=== PATIENT | male | born 1950 | race Caucasian/White ===

== ENCOUNTER 2018-01-08 18:29 | Inpatient (IN) | payer MEDICARE, OTHER ==
[~2018-01-08] VITALS: Ht 160 cm; Wt 65.3 kg
[~2018-01-08 18:29] MED LIST: ACIDOPHILUS; ALBU90OI61 INH; ALFU10; AMIT10; AMIT25; AMIT50; AMYLIPPRO PO; ANDROGEL75 GM TD; ASCO500; ASCO500 PO; ASPI81CH PO; ASPI81EC; ATOR10; ATOR40TA; ATOR80 PO; Ambien5 MG PO; BETASERON; CARV3.125 PO; CEPH125SU PO; CLOP75 PO; CREON DR 12,001 EACH PO; CYCL10 PO; Colace100 MG PO; DIAZ5; ENAL5; ENAL5 PO; ESCI20 PO; ESOM20 PO; FISH1000 PO; GABA300; GNP B-COMPLEX1 EACH PO; HYDMOR4 PO; HYDR1TAB94 PO; IMDUR PO; INS70/30I; INSDET100 SQ; INSN100I; INSR10I; INSR10I SC; INSU7030P; INTE30I; INTE30I IM; LANS30EC; LANS30PKT; MAGNESIUM400 MG PO; METF500 PO; METO10 PO; METO50ER; MULVITB&C PO; Miralax17 GM PO; NITR.4SL SL; OMEP20ER PO; ONDA4ODT MM; PRED10 PO; PREG50; PREG75; PREG75 PO; Percocet 5-3251 EACH PO; Prilosec Otc20 MG PO; RANO500T PO; SILD50TA PO; VERA240ER PO; VITB100; ZINC15; ZOLP10; ZOLP5 PO; [UNRECOGNIZED DRUG - OTHER]
[2018-01-08] MEDS ORDERED: TECFIDERA1 EACH PO (18:52)
[2018-01-08] MEDS ORDERED: METF500C PO (18:52)
[2018-01-08] MEDS ORDERED: METO25ER PO (18:53)
[2018-01-08] MEDS ORDERED: AMLO5 PO (18:54)
[2018-01-08] MEDS ORDERED: ISOMON20 PO (18:55)
[2018-01-08] MEDS ORDERED: ESCI10 PO (18:56)
[2018-01-08] MEDS ORDERED: Metformin HCl1000 MG PO (18:57)
[2018-01-08] MEDS ORDERED: Isosorbide Mono60 MG PO (18:59)
[2018-01-08] MEDS ORDERED: ALFU10 PO (19:03)
[2018-01-08] MEDS ORDERED: ESTER-C 1,0001 EACH PO (19:04)
[2018-01-08 19:05] LABS: BASOPHILS ABSOLUTE AUTO 0.03 K/mm3 (0.00-0.23); BASOPHILS PERCENT AUTO 0 % (0-2); EOSINOPHILS ABSOLUTE AUTO 0.67 K/mm3 (0.00-0.68); EOSINOPHILS PERCENT AUTO 8 % (0-6); Hematocrit 30.1 % (37.0-53.0); Hemoglobin 9.7 g/dL (13.5-17.5); IMMATURE GRAN ABSOLUTE AUTO 0.05 K/mm3 (0.00-0.10); IMMATURE GRAN PERCENT AUTO 1 % (0-1); LYMPHOCYTES ABSOLUTE AUTO 2.15 K/mm3 (0.84-5.20); LYMPHOCYTES PERCENT AUTO 26 % (21-46); MONOCYTES ABSOLUTE AUTO 1.24 K/mm3 (0.16-1.47); MONOCYTES PERCENT AUTO 15 % (4-13); Mean Corpuscular HGB 27.6 pg (26.0-34.0); Mean Corpuscular HGB Conc 32.2 g/dL (31.5-36.5); Mean Corpuscular Volume 86 fL (80-100); NEUTROPHILS ABSOLUTE AUTO 4.07 K/mm3 (1.96-9.15); NEUTROPHILS PERCENT AUTO 50 % (41-73); Platelet Count 269 K/mm3 (150-400); RDW Coefficient Variation 14.2 % (11.7-14.2); RDW Standard Deviation 43.7 fL (35.1-46.3); Red Blood Cell Count 3.51 M/mm3 (4.30-5.90); White Blood Cell Count 8.21 K/mm3 (4.00-11.30)
[2018-01-08 19:21] LABS: Alanine Aminotransfer (ALT/SGP 20 U/L (12-78); Albumin, Blood 3.4 g/dL (3.4-5.0); Albumin/Globulin Ratio 0.8 (0.8-1.8); Alk Phos 72 U/L (50-136); Anion Gap 9 mmol/L (6-16); Aspartate Aminotrans (AST/SGOT 23 U/L (12-37); Bilirubin, Total 0.7 mg/dL (0.1-1.0); Blood Urea Nitrogen 27 mg/dL (8-24); Bun/Creatinine Ratio 14.8 (12.0-20.0); CO2, Blood 23 mmol/L (21-32); Calcium, Blood 8.7 mg/dL (8.5-10.1); Chloride, Blood 105 mmol/L (98-108); Creatinine, Blood 1.83 mg/dL (0.60-1.20); Globulin, Blood 4.1 g/dL (2.2-4.0); Glomerular Filtration Rate 40 (60-); Glucose, Blood 100 mg/dL (70-99); Potassium, Blood 5.1 mmol/L (3.5-5.5); Sodium, Blood 137 mmol/L (136-145); Total Protein, Blood 7.5 g/dL (6.4-8.2); Troponin I <0.015 ng/mL (0.000-0.040)
[2018-01-08 22:42] LABS: Source, Urine Clean Catch
[2018-01-08 22:46] LABS: Bilirubin, Urine Neg (Neg); Blood, Urine Neg (Neg); Glucose Qualitative, Urine Neg (Neg); Ketones, Urine Neg (Neg); Leukocyte Esterase, Urine Neg (Neg); Nitrite, Urine Neg (Neg); Protein, Urine Neg (Neg); Specific Gravity, Urine 1.005 (1.003-1.022); Urobilinogen, Urine NORM (Normal)
[2018-01-08 22:49] LABS: Appearance, Urine Clear (Clear); Color, Urine Yellow (P-Yellow)
[2018-01-08] MEDS ORDERED: ESCI20 PO (23:05)
[2018-01-09 03:21] LABS: Hematocrit 30.2 % (37.0-53.0); Hemoglobin 9.8 g/dL (13.5-17.5); Mean Corpuscular HGB Conc 32.5 g/dL (31.5-36.5); Mean Corpuscular Volume 86 fL (80-100); Platelet Count 256 K/mm3 (150-400); RDW Coefficient Variation 14.2 % (11.7-14.2); RDW Standard Deviation 44.5 fL (35.1-46.3); White Blood Cell Count 7.85 K/mm3 (4.00-11.30)
[2018-01-09 03:43] LABS: Alanine Aminotransfer (ALT/SGP 21 U/L (12-78); Albumin, Blood 3.4 g/dL (3.4-5.0); Albumin/Globulin Ratio 0.8 (0.8-1.8); Alk Phos 74 U/L (50-136); Anion Gap 10 mmol/L (6-16); Aspartate Aminotrans (AST/SGOT 24 U/L (12-37); Bilirubin, Total 0.7 mg/dL (0.1-1.0); Blood Urea Nitrogen 27 mg/dL (8-24); Bun/Creatinine Ratio 14.8 (12.0-20.0); CO2, Blood 24 mmol/L (21-32); CPK Creatine Kinase 59 U/L (39-308); Calcium, Blood 8.8 mg/dL (8.5-10.1); Chloride, Blood 104 mmol/L (98-108); Creatinine, Blood 1.82 mg/dL (0.60-1.20); Globulin, Blood 4.3 g/dL (2.2-4.0); Glomerular Filtration Rate 40 (60-); Glucose, Blood 92 mg/dL (70-99); Potassium, Blood 4.7 mmol/L (3.5-5.5); Sodium, Blood 138 mmol/L (136-145); Total Protein, Blood 7.7 g/dL (6.4-8.2); Troponin I <0.015 ng/mL (0.000-0.040)
[2018-01-09 12:14] LABS: CPK Creatine Kinase 52 U/L (39-308); Troponin I <0.015 ng/mL (0.000-0.040)
[2018-01-09 19:38] LABS: CPK Creatine Kinase 51 U/L (39-308); Troponin I <0.015 ng/mL (0.000-0.040)
[2018-01-10 08:50] LABS: Bun/Creatinine Ratio 14.2 (12.0-20.0); Calcium, Blood 9.1 mg/dL (8.5-10.1); Creatinine, Blood 1.9 mg/dL (0.60-1.20); Potassium, Blood 4.2 mmol/L (3.5-5.5)
[2018-01-11 04:50] LABS: Bun/Creatinine Ratio 14.4 (12.0-20.0); Calcium, Blood 8.9 mg/dL (8.5-10.1); Creatinine, Blood 2.01 mg/dL (0.60-1.20); Potassium, Blood 4.4 mmol/L (3.5-5.5)
[2018-01-12 05:06] LABS: Bun/Creatinine Ratio 15.9 (12.0-20.0); Calcium, Blood 8.7 mg/dL (8.5-10.1); Creatinine, Blood 1.82 mg/dL (0.60-1.20); Potassium, Blood 4.3 mmol/L (3.5-5.5)
[2018-01-12] MEDS ORDERED: FURO20 PO (12:05)
== END 2018-01-12 13:52 | disposition home or self-care (01) | DRG 291 ==
LOC: ER 18:29 → MEDS 20:45 → ENPENDDIS 01-12 10:00 → MEDS 01-12 13:52
PROVIDERS: Emergency Medicine; Hospitalist; Internal Medicine
DX: I13.0 Hypertensive heart and chronic kidney disease with heart failure and stage 1 through stage 4 chronic kidney disease, or unspecified chronic kidney disease (principal); I50.31 Acute diastolic (congestive) heart failure; J96.01 Acute respiratory failure with hypoxia; N17.9 Acute kidney failure, unspecified; N18.3 Chronic kidney disease, stage 3 (moderate); E11.22 Type 2 diabetes mellitus with diabetic chronic kidney disease; I25.110 Atherosclerotic heart disease of native coronary artery with unstable angina pectoris; G35 Multiple sclerosis; I73.9 Peripheral vascular disease, unspecified; Z87.891 Personal history of nicotine dependence
CPT/HCPCS: 36415; 71046; 78451; 80048; 80053; 81003; 82550; 82947; 83880; 84484; 85025; 85027; 93005; 93010; 93017; 93308; 93321; 94640; 94760; 96372; 96374; 99285-25; A9500; J0706; J1650; J1940; J2785; J7030

== ENCOUNTER 2018-01-16 19:57 | Observation (INO) | payer MEDICARE, OTHER ==
[~2018-01-16] VITALS: Ht 162.6 cm; Wt 67.9 kg
[~2018-01-16 19:57] MED LIST changes: +ALFU10 PO; +AMLO5 PO; +ESCI10 PO; +ESTER-C 1,0001 EACH PO; +FURO20 PO; +ISOMON20 PO; +Isosorbide Mono60 MG PO; +METF500C PO; +METO25ER PO; +Metformin HCl1000 MG PO; +TECFIDERA1 EACH PO
[2018-01-16 20:40] LABS: BASOPHILS ABSOLUTE AUTO 0.06 K/mm3 (0.00-0.23); BASOPHILS PERCENT AUTO 1 % (0-2); EOSINOPHILS ABSOLUTE AUTO 0.64 K/mm3 (0.00-0.68); EOSINOPHILS PERCENT AUTO 7 % (0-6); Hemoglobin 9.9 g/dL (13.5-17.5); IMMATURE GRAN ABSOLUTE AUTO 0.04 K/mm3 (0.00-0.10); IMMATURE GRAN PERCENT AUTO 1 % (0-1); LYMPHOCYTES ABSOLUTE AUTO 2.02 K/mm3 (0.84-5.20); LYMPHOCYTES PERCENT AUTO 23 % (21-46); MONOCYTES ABSOLUTE AUTO 1.12 K/mm3 (0.16-1.47); MONOCYTES PERCENT AUTO 13 % (4-13); Mean Corpuscular HGB 27.4 pg (26.0-34.0); Mean Platelet Volume 10.4 fL (9.1-12.4); NEUTROPHILS ABSOLUTE AUTO 4.86 K/mm3 (1.96-9.15); NEUTROPHILS PERCENT AUTO 56 % (41-73); Platelet Count 289 K/mm3 (150-400); RDW Coefficient Variation 13.6 % (11.7-14.2); RDW Standard Deviation 41.1 fL (35.1-46.3); Red Blood Cell Count 3.61 M/mm3 (4.30-5.90); White Blood Cell Count 8.74 K/mm3 (4.00-11.30)
[2018-01-16 20:41] LABS: Mean Corpuscular Volume 83 fL (80-100)
[2018-01-16 20:55] LABS: Alanine Aminotransfer (ALT/SGP 24 U/L (12-78); Albumin, Blood 3.7 g/dL (3.4-5.0); Albumin/Globulin Ratio 0.8 (0.8-1.8); Alk Phos 76 U/L (50-136); Anion Gap 13 mmol/L (6-16); Aspartate Aminotrans (AST/SGOT 21 U/L (12-37); Bilirubin, Total 0.6 mg/dL (0.1-1.0); Blood Urea Nitrogen 31 mg/dL (8-24); Bun/Creatinine Ratio 16.5 (12.0-20.0); CO2, Blood 19 mmol/L (21-32); Calcium, Blood 8.4 mg/dL (8.5-10.1); Chloride, Blood 95 mmol/L (98-108); Creatinine, Blood 1.88 mg/dL (0.60-1.20); Globulin, Blood 4.4 g/dL (2.2-4.0); Glomerular Filtration Rate 38 (60-); Glucose, Blood 98 mg/dL (70-99); Potassium, Blood 5.1 mmol/L (3.5-5.5); Sodium, Blood 127 mmol/L (136-145); Total Protein, Blood 8.1 g/dL (6.4-8.2); Troponin I <0.015 ng/mL (0.000-0.040)
[2018-01-17 05:14] LABS: Bun/Creatinine Ratio 16.5 (12.0-20.0); Calcium, Blood 8.6 mg/dL (8.5-10.1); Creatinine, Blood 1.82 mg/dL (0.60-1.20); Potassium, Blood 5.2 mmol/L (3.5-5.5)
[2018-01-18 05:14] LABS: Bun/Creatinine Ratio 14.4 (12.0-20.0); Calcium, Blood 8.8 mg/dL (8.5-10.1); Creatinine, Blood 1.67 mg/dL (0.60-1.20); Potassium, Blood 5.1 mmol/L (3.5-5.5)
== END 2018-01-18 11:10 | disposition home or self-care (01) ==
LOC: ER 19:57 → MEDS 19:58 → EDPENDDIS 01-18 07:34 → ENPENDDIS 01-18 07:34 → MEDS 01-18 11:10
PROVIDERS: Emergency Medicine; Internal Medicine; Nurse Practitioner Acute Care
DX: E86.0 Dehydration (principal); E87.1 Hypo-osmolality and hyponatremia; E87.8 Other disorders of electrolyte and fluid balance, not elsewhere classified; R53.1 Weakness; G35 Multiple sclerosis; I25.10 Atherosclerotic heart disease of native coronary artery without angina pectoris; E11.22 Type 2 diabetes mellitus with diabetic chronic kidney disease; I13.0 Hypertensive heart and chronic kidney disease with heart failure and stage 1 through stage 4 chronic kidney disease, or unspecified chronic kidney disease; I50.32 Chronic diastolic (congestive) heart failure; N18.3 Chronic kidney disease, stage 3 (moderate); K21.9 Gastro-esophageal reflux disease without esophagitis; Z79.899 Other long term (current) drug therapy; F17.290 Nicotine dependence, other tobacco product, uncomplicated; Z79.82 Long term (current) use of aspirin; Z88.0 Allergy status to penicillin; Z79.02 Long term (current) use of antithrombotics/antiplatelets; Z88.2 Allergy status to sulfonamides; Z88.5 Allergy status to narcotic agent; Z88.8 Allergy status to other drugs, medicaments and biological substances; W19.XXXA Unspecified fall, initial encounter
CPT/HCPCS: 36415; 71046; 80048; 80053; 83880; 84484; 85025; 93005; 93010; 96360; 96361; 97116; 97162; 97530; 99285-25; G0378; G8978; G8979; J7030

== ENCOUNTER 2018-04-18 09:57 | Emergency (ER) | payer MEDICARE ==
[~2018-04-18] VITALS: Ht 165.1 cm; Wt 63.5 kg
[~2018-04-18 09:57] MED LIST changes: +FENO600 PO; +FERSU90EL PO; +LEVE500 PO
[2018-04-18 10:41] LABS: BASOPHILS ABSOLUTE AUTO 0.04 K/mm3 (0.00-0.23); BASOPHILS PERCENT AUTO 1 % (0-2); EOSINOPHILS ABSOLUTE AUTO 0.46 K/mm3 (0.00-0.68); EOSINOPHILS PERCENT AUTO 7 % (0-6); Hematocrit 34.2 % (37.0-53.0); Hemoglobin 10.9 g/dL (13.5-17.5); IMMATURE GRAN ABSOLUTE AUTO 0.02 K/mm3 (0.00-0.10); IMMATURE GRAN PERCENT AUTO 0 % (0-1); LYMPHOCYTES ABSOLUTE AUTO 1.97 K/mm3 (0.84-5.20); LYMPHOCYTES PERCENT AUTO 29 % (21-46); MONOCYTES ABSOLUTE AUTO 0.88 K/mm3 (0.16-1.47); MONOCYTES PERCENT AUTO 13 % (4-13); Mean Corpuscular HGB 28.7 pg (26.0-34.0); Mean Corpuscular HGB Conc 31.9 g/dL (31.5-36.5); Mean Corpuscular Volume 90 fL (80-100); Mean Platelet Volume 10.1 fL (9.1-12.4); NEUTROPHILS ABSOLUTE AUTO 3.39 K/mm3 (1.96-9.15); NEUTROPHILS PERCENT AUTO 50 % (41-73); Platelet Count 188 K/mm3 (150-400); RDW Standard Deviation 52.8 fL (35.1-46.3); White Blood Cell Count 6.76 K/mm3 (4.00-11.30)
[2018-04-18 10:57] LABS: Albumin, Blood 3.3 g/dL (3.4-5.0); Albumin/Globulin Ratio 0.8 (0.8-1.8); Bilirubin, Total 0.5 mg/dL (0.1-1.0); Bun/Creatinine Ratio 12.7 (12.0-20.0); Calcium, Blood 8.9 mg/dL (8.5-10.1); Creatinine, Blood 1.65 mg/dL (0.60-1.20); Globulin, Blood 4.3 g/dL (2.2-4.0); Magnesium, Blood 1.7 mg/dL (1.6-2.4); Potassium, Blood 4.9 mmol/L (3.5-5.5); Total Protein, Blood 7.6 g/dL (6.4-8.2)
[2018-04-18 10:59] LABS: Prolactin 41.3 ng/mL (2.5-17.4)
[2018-04-18] MEDS ORDERED: LEVE500 PO (13:48)
== END 2018-04-18 14:37 | disposition home or self-care (01) ==
LOC: ER 09:57
PROVIDERS: Emergency Medicine
DX: G40.909 Epilepsy, unspecified, not intractable, without status epilepticus (principal); G35 Multiple sclerosis; I11.0 Hypertensive heart disease with heart failure; I50.9 Heart failure, unspecified; E11.9 Type 2 diabetes mellitus without complications; K21.9 Gastro-esophageal reflux disease without esophagitis; Z87.891 Personal history of nicotine dependence
CPT/HCPCS: 36415; 80053; 83735; 84146; 85025; 96365; 99284-25; J1953

== ENCOUNTER → 2018-08-17 | Outpatient (CLI) | payer MEDICARE, OTHER ==
[2018-08-17 15:03] LABS: Creatinine Urine 43.3 mg/dL (27.00-270.00); Microalbumin, Urine Quant. 5.92 mg/L (0.000-20.000)
== END | disposition home or self-care (01) ==
LOC: LAB SHORT 13:28 → LAB 13:28
PROVIDERS: Internal Medicine Nephrology
DX: N18.3 Chronic kidney disease, stage 3 (moderate) (principal); D75.1 Secondary polycythemia; N25.81 Secondary hyperparathyroidism of renal origin; E55.9 Vitamin D deficiency, unspecified; E78.00 Pure hypercholesterolemia, unspecified; R76.9 Abnormal immunological finding in serum, unspecified; R94.5 Abnormal results of liver function studies; R94.6 Abnormal results of thyroid function studies; G60.9 Hereditary and idiopathic neuropathy, unspecified; D51.8 Other vitamin B12 deficiency anemias; D52.8 Other folate deficiency anemias; D50.9 Iron deficiency anemia, unspecified
CPT/HCPCS: 81050; 82043; 82570; 84156

== ENCOUNTER 2021-06-05 12:12 | Emergency (ER) | payer MEDICARE ==
[~2021-06-05] VITALS: Ht 162.6 cm; Wt 74.8 kg
[2021-06-05 13:31] LABS: BASOPHILS ABSOLUTE AUTO 0.04 K/mm3 (0.00-0.23); BASOPHILS PERCENT AUTO 1 % (0-2); EOSINOPHILS ABSOLUTE AUTO 0.14 K/mm3 (0.00-0.68); EOSINOPHILS PERCENT AUTO 2 % (0-6); Hematocrit 40.2 % (37.0-53.0); Hemoglobin 13.4 g/dL (13.5-17.5); IMMATURE GRAN ABSOLUTE AUTO 0.05 K/mm3 (0.00-0.10); IMMATURE GRAN PERCENT AUTO 1 % (0-1); LYMPHOCYTES ABSOLUTE AUTO 1.75 K/mm3 (0.84-5.20); LYMPHOCYTES PERCENT AUTO 22 % (21-46); MONOCYTES ABSOLUTE AUTO 0.87 K/mm3 (0.16-1.47); MONOCYTES PERCENT AUTO 11 % (4-13); Mean Corpuscular HGB 31.2 pg (26.0-34.0); Mean Corpuscular HGB Conc 33.3 g/dL (31.5-36.5); Mean Corpuscular Volume 94 fL (80-100); Mean Platelet Volume 10.2 fL (9.1-12.4); NEUTROPHILS ABSOLUTE AUTO 5.14 K/mm3 (1.96-9.15); NEUTROPHILS PERCENT AUTO 64 % (41-73); Platelet Count 191 K/mm3 (150-400); RDW Coefficient Variation 13.2 % (11.7-14.2); RDW Standard Deviation 44.6 fL (35.1-46.3); White Blood Cell Count 7.99 K/mm3 (4.00-11.30)
[2021-06-05 13:52] LABS: Albumin, Blood 3.9 g/dL (3.4-5.0); Albumin/Globulin Ratio 0.9 (0.8-1.8); Bilirubin, Total 0.8 mg/dL (0.1-1.0); Bun/Creatinine Ratio 21.9 (12.0-20.0); Creatinine, Blood 1.6 mg/dL (0.60-1.20); Globulin, Blood 4.4 g/dL (2.2-4.0); Total Protein, Blood 8.3 g/dL (6.4-8.2)
== END 2021-06-05 17:49 | disposition home or self-care (01) ==
LOC: ER 12:12
PROVIDERS: Physician Assistant
DX: R07.9 Chest pain, unspecified (principal); I11.0 Hypertensive heart disease with heart failure; I50.9 Heart failure, unspecified; E11.51 Type 2 diabetes mellitus with diabetic peripheral angiopathy without gangrene; K21.9 Gastro-esophageal reflux disease without esophagitis; F17.200 Nicotine dependence, unspecified, uncomplicated; Z79.82 Long term (current) use of aspirin; Z79.899 Other long term (current) drug therapy; Z88.5 Allergy status to narcotic agent; Z88.0 Allergy status to penicillin; Z88.2 Allergy status to sulfonamides; Z88.1 Allergy status to other antibiotic agents; Z91.040 Latex allergy status; Z88.8 Allergy status to other drugs, medicaments and biological substances
CPT/HCPCS: 36415; 71046; 80053; 83690; 83880; 84484; 85025; 93005; 93010; 99284-25; A9270

== ENCOUNTER 2021-09-06 07:43 | Observation (INO) | payer MEDICARE ==
[~2021-09-06] VITALS: Ht 162.6 cm; Wt 66.6 kg
[~2021-09-06 07:43] MED LIST changes: +CLON.5 PO; +DIPHENHYDRAMINE HCL PO; +PANT40 PO
--- NOTE | 2021-09-06 10:53 | NUR ---
PT RETURNED TO RECOVERY ROOM IN BED. RIGHT RADIAL TR BAND SITE SOFT NON-TENDER WITH NO HEMATOMA, NO PULSATILE BLEEDING AND RIGHT WRIST BOARD IN PLACE. PT DENIES CHEST PAIN. CALL LIGHT IN REACH.
--- NOTE | 2021-09-06 18:04 | NUR ---
ADMISSION/SHIFT SUMMARY: PT ADMITTED TO PCU F/[facility] C[facility] S/P ANGIOGRAM W/R RADIAL ACCESS SITE, ARRIVING APPROX 1200. PT IS A&Ox4, ANSWERS QUESTIONS APPROPRIATELY, COOPERATIVE WITH CARE. O2 SATS MAINTAINED >92% ON RA. PT DENIES CHEST PAIN/PRESSURE, SR ON MONITOR. INITIAL TR BAND DEFLATION STARTED 2 HOURS POST PLACEMENT W/BLEEDING AT THE SITE NOTED. AIR REPLACED AND DEFLATION RESUMED APPROX 30-45 MINS LATER. TR BAND HAS BEEN DEFLATED AND REMOVED W/TRANSPARENT DRESSING AND ARM BOARD IN PLACE. R RADIAL SITE IS SOFT, NONTENDER, MILD BRUISING BELOW WHERE BAND WAS. AT THIS TIME, PT IS RESTING QUIETLY IN BED W/CALL LIGHT IN REACH. WILL CONTINUE TO MONITOR AND TREAT ACCORDINGLY UNTIL CHANGE OF SHIFT.
[2021-09-07 03:36] LABS: Hematocrit 36.2 % (37.0-53.0); Mean Corpuscular HGB 30.2 pg (26.0-34.0); Mean Corpuscular HGB Conc 33.1 g/dL (31.5-36.5); Mean Corpuscular Volume 91 fL (80-100); Mean Platelet Volume 10.2 fL (9.1-12.4); Platelet Count 185 K/mm3 (150-400); RDW Coefficient Variation 13.1 % (11.7-14.2); RDW Standard Deviation 43.4 fL (35.1-46.3); Red Blood Cell Count 3.97 M/mm3 (4.30-5.90); White Blood Cell Count 6.35 K/mm3 (4.00-11.30)
[2021-09-07 03:54] LABS: Bun/Creatinine Ratio 13.3 (12.0-20.0); Calcium, Blood 8.9 mg/dL (8.5-10.1); Creatinine, Blood 1.66 mg/dL (0.60-1.20); Potassium, Blood 4.5 mmol/L (3.5-5.5)
--- NOTE | 2021-09-07 06:06 | NUR ---
NO ACUTE EVENTS OVERNIGHT. PT DENIES ANY CHEST PAIN OR PRESSURE THROUGHOUT THE SHIFT. RIGHT RADIAL ACCESS SITE WNL WITH THE EXCEPTION OF SLIGHT ECCHYMOSIS. SENSATION AND PULSE INTACT. PT REQUESTS DISCHARGE BY 11:00 AM, IF POSSIBLE, TO MAKE IT TO ANOTHER APPOINTMENT ON TIME. WILL PASS THIS ON TO THE DAY SHIFT STAFF.
--- NOTE | 2021-09-07 13:17 | NUR ---
DISCHARGE: NO ACUTE EVENTS, PT CLEARED FOR DISCHARGE. IV ACCESS DC'd WNL. PT PROVIDED WITH DC PAPERWORK AND INSTRUCTIONS, PT V/U. PT ESCORTED FROM UNIT VIA W/C W/OUT INCIDENT.
== END 2021-09-07 13:12 | disposition home or self-care (01) ==
LOC: MHTC 07:43 → PCU 10:51
PROVIDERS: Internal Medicine Interventional Cardiology; ADMIT Internal Medicine Cardiovascular Disease
DX: I25.118 Atherosclerotic heart disease of native coronary artery with other forms of angina pectoris (principal); E78.5 Hyperlipidemia, unspecified; I10 Essential (primary) hypertension; Z95.5 Presence of coronary angioplasty implant and graft; Z95.828 Presence of other vascular implants and grafts; I45.10 Unspecified right bundle-branch block; E11.51 Type 2 diabetes mellitus with diabetic peripheral angiopathy without gangrene; G35 Multiple sclerosis; Z88.5 Allergy status to narcotic agent; Z88.1 Allergy status to other antibiotic agents; Z88.0 Allergy status to penicillin; Z88.2 Allergy status to sulfonamides; Z88.6 Allergy status to analgesic agent
CPT/HCPCS: 36415; 76937; 80048; 85027; 85347; 92920; 92978; 93454; 99152; 99153; A9270; C1725; C1753; C1769; C1887; C1894; J1644; J2250; J7030; J7040; Q9967

== ENCOUNTER 2021-11-22 08:50 | Day surgery (SDC) | payer MEDICARE ==
[~2021-11-22] VITALS: Ht 162.6 cm; Wt 65.5 kg
--- NOTE | 2021-11-22 11:02 | NUR ---
11/22/21 1102 Bonny Berry USING [facility].DLB ACCESS SINCE [facility].NSC IS LOCKED OUT OF COMPUTER.
== END 2021-11-22 10:55 | disposition home or self-care (01) ==
LOC: ORSCSDS 08:50
PROVIDERS: Internal Medicine Gastroenterology
PROC: 0DB58ZX Excision of Esophagus, Via Natural or Artificial Opening Endoscopic, Diagnostic (ICD-10-PCS; principal; 2021-11-22 10:00)
PROC: 0DB68ZX Excision of Stomach, Via Natural or Artificial Opening Endoscopic, Diagnostic (ICD-10-PCS; principal; 2021-11-22 10:00)
DX: K21.00 Gastro-esophageal reflux disease with esophagitis, without bleeding (principal); K29.60 Other gastritis without bleeding; Z79.82 Long term (current) use of aspirin; Z87.891 Personal history of nicotine dependence; Z79.899 Other long term (current) drug therapy
CPT/HCPCS: 82947; 88305; 88342; J2704; J7120

== ENCOUNTER 2021-12-09 08:36 | Day surgery (SDC) | payer MEDICARE ==
[~2021-12-09] VITALS: Ht 162.6 cm; Wt 66.1 kg
--- NOTE | 2021-12-09 09:11 | NUR ---
12/09/21 0911 Monik Gupta AT 0850 PLEDGET AT 0850
== END 2021-12-09 10:12 | disposition home or self-care (01) ==
LOC: ORSCSDS 08:36
PROVIDERS: Ophthalmology
PROC: 08RJ3JZ Replacement of Right Lens with Synthetic Substitute, Percutaneous Approach (ICD-10-PCS; principal; 2021-12-09 10:00)
DX: H25.11 Age-related nuclear cataract, right eye (principal); E11.36 Type 2 diabetes mellitus with diabetic cataract; H21.81 Floppy iris syndrome; I10 Essential (primary) hypertension; G35 Multiple sclerosis; Z79.899 Other long term (current) drug therapy; Z79.02 Long term (current) use of antithrombotics/antiplatelets; Z79.82 Long term (current) use of aspirin
CPT/HCPCS: 82947; J2001; J3301; J7040; V2632

== ENCOUNTER 2021-12-16 11:04 | Day surgery (SDC) | payer MEDICARE ==
[~2021-12-16] VITALS: Ht 165.1 cm; Wt 65.8 kg
[2021-12-16] MEDS ORDERED: ALBU90OI (11:19)
== END 2021-12-16 12:48 | disposition home or self-care (01) ==
LOC: ORSCSDS 11:04
PROVIDERS: Ophthalmology
PROC: 08RK3JZ Replacement of Left Lens with Synthetic Substitute, Percutaneous Approach (ICD-10-PCS; principal; 2021-12-16 12:30)
DX: H25.12 Age-related nuclear cataract, left eye (principal); H21.81 Floppy iris syndrome; Z96.1 Presence of intraocular lens; E11.9 Type 2 diabetes mellitus without complications; I10 Essential (primary) hypertension; J44.9 Chronic obstructive pulmonary disease, unspecified; K21.9 Gastro-esophageal reflux disease without esophagitis; R56.9 Unspecified convulsions; I25.10 Atherosclerotic heart disease of native coronary artery without angina pectoris; Z79.82 Long term (current) use of aspirin; Z79.899 Other long term (current) drug therapy
CPT/HCPCS: 82947; J2001; J2250; J3301; J7040; V2632

== ENCOUNTER → 2022-08-08 | Outpatient (CLI) | payer MEDICARE ==
[~2022-08-08] MED LIST changes: +ALBU90OI
[2022-08-08 21:03] LABS: Adenovirus F 40/41 Not Detected (NOT DETECT); Astrovirus Not Detected (NOT DETECT); Campylobacter Sp Not Detected (NOT DETECT); Cryptosporidium Not Detected (NOT DETECT); Cyclospora Cayetanensis Not Detected (NOT DETECT); E. Coli O157 Not Detected (NOT DETECT); Entamoeba Histolytica Not Detected (NOT DETECT); Enteroaggregative E. coli-EAEC Not Detected (NOT DETECT); Enteropathogenic E. coli-EPEC Not Detected (NOT DETECT); Enterotoxigenic E. coli-ETEC Not Detected (NOT DETECT); Giardia Lamblia Not Detected (NOT DETECT); Norovirus GI/GII Not Detected (NOT DETECT); Plesiomonas Shigelloides Not Detected (NOT DETECT); Rotavirus A Not Detected (NOT DETECT); Salmonella Sp Not Detected (NOT DETECT); Sapovirus Not Detected (NOT DETECT); Shiga Toxin-prod E. coli-STEC Not Detected (NOT DETECT); Shigella/Enteroin E. coli-EIEC Not Detected (NOT DETECT); Vibrio Cholerae Not Detected (NOT DETECT); Vibrio Sp Not Detected (NOT DETECT); Yersinia Enterocolitica Not Detected (NOT DETECT)
== END | disposition home or self-care (01) ==
LOC: LAB SHORT 14:47
PROVIDERS: Family Medicine
DX: R19.7 Diarrhea, unspecified (principal)
CPT/HCPCS: 87507

== ENCOUNTER → 2022-08-19 | Outpatient (CLI) | payer OTHER ==
[2022-08-19 19:38] LABS: BASOPHILS ABSOLUTE AUTO 0.04 K/mm3 (0.00-0.23); BASOPHILS PERCENT AUTO 1 % (0-2); EOSINOPHILS ABSOLUTE AUTO 0.29 K/mm3 (0.00-0.68); EOSINOPHILS PERCENT AUTO 4 % (0-6); Hematocrit 32.2 % (37.0-53.0); Hemoglobin 10.7 g/dL (13.5-17.5); IMMATURE GRAN ABSOLUTE AUTO 0.02 K/mm3 (0.00-0.10); IMMATURE GRAN PERCENT AUTO 0 % (0-1); LYMPHOCYTES ABSOLUTE AUTO 1.53 K/mm3 (0.84-5.20); LYMPHOCYTES PERCENT AUTO 23 % (21-46); MONOCYTES ABSOLUTE AUTO 0.92 K/mm3 (0.16-1.47); MONOCYTES PERCENT AUTO 14 % (4-13); Mean Corpuscular HGB 30.1 pg (26.0-34.0); Mean Corpuscular HGB Conc 33.2 g/dL (31.5-36.5); Mean Corpuscular Volume 91 fL (80-100); Mean Platelet Volume 10.7 fL (9.1-12.4); NEUTROPHILS ABSOLUTE AUTO 3.98 K/mm3 (1.96-9.15); NEUTROPHILS PERCENT AUTO 59 % (41-73); Platelet Count 194 K/mm3 (150-400); RDW Coefficient Variation 13.9 % (11.7-14.2); RDW Standard Deviation 46.2 fL (35.1-46.3); Red Blood Cell Count 3.55 M/mm3 (4.30-5.90); White Blood Cell Count 6.78 K/mm3 (4.00-11.30)
[2022-08-19 20:03] LABS: Albumin, Blood 3.4 g/dL (3.4-5.0); Albumin/Globulin Ratio 0.8 (0.8-1.8); Bilirubin, Total 0.7 mg/dL (0.1-1.0); Bun/Creatinine Ratio 13.2 (12.0-20.0); Calcium, Blood 8.5 mg/dL (8.5-10.1); Creatinine, Blood 1.36 mg/dL (0.60-1.20); Globulin, Blood 4.5 g/dL (2.2-4.0); Potassium, Blood 3.8 mmol/L (3.5-5.5); Total Protein, Blood 7.9 g/dL (6.4-8.2)
== END | disposition home or self-care (01) ==
LOC: LAB SHORT 17:18
PROVIDERS: Family Medicine
DX: R19.7 Diarrhea, unspecified (principal)
CPT/HCPCS: 80053; 85025

== ENCOUNTER 2023-01-04 16:13 | Observation (INO) | payer OTHER ==
[~2023-01-04] VITALS: Ht 162.6 cm; Wt 66.9 kg
[2023-01-04 16:56] LABS: BASOPHILS ABSOLUTE AUTO 0.03 K/mm3 (0.00-0.23); BASOPHILS PERCENT AUTO 1 % (0-2); EOSINOPHILS ABSOLUTE AUTO 0.18 K/mm3 (0.00-0.68); EOSINOPHILS PERCENT AUTO 3 % (0-6); Hematocrit 31.6 % (37.0-53.0); Hemoglobin 10.4 g/dL (13.5-17.5); IMMATURE GRAN ABSOLUTE AUTO 0.03 K/mm3 (0.00-0.10); IMMATURE GRAN PERCENT AUTO 1 % (0-1); LYMPHOCYTES ABSOLUTE AUTO 1.33 K/mm3 (0.84-5.20); LYMPHOCYTES PERCENT AUTO 23 % (21-46); MONOCYTES ABSOLUTE AUTO 0.78 K/mm3 (0.16-1.47); MONOCYTES PERCENT AUTO 13 % (4-13); Mean Corpuscular HGB 30.1 pg (26.0-34.0); Mean Corpuscular HGB Conc 32.9 g/dL (31.5-36.5); Mean Corpuscular Volume 91 fL (80-100); Mean Platelet Volume 10.6 fL (9.1-12.4); NEUTROPHILS ABSOLUTE AUTO 3.56 K/mm3 (1.96-9.15); NEUTROPHILS PERCENT AUTO 60 % (41-73); Platelet Count 157 K/mm3 (150-400); RDW Coefficient Variation 14.3 % (11.7-14.2); RDW Standard Deviation 47.9 fL (35.1-46.3); Red Blood Cell Count 3.46 M/mm3 (4.30-5.90); White Blood Cell Count 5.91 K/mm3 (4.00-11.30)
[2023-01-04 17:22] LABS: Albumin, Blood 3.9 g/dL (3.4-5.0); Albumin/Globulin Ratio 0.8 (0.8-1.8); Bilirubin, Total 0.5 mg/dL (0.1-1.0); Bun/Creatinine Ratio 15.3 (12.0-20.0); Creatinine, Blood 1.57 mg/dL (0.60-1.20); Globulin, Blood 4.9 g/dL (2.2-4.0); Potassium, Blood 4.7 mmol/L (3.5-5.5); Total Protein, Blood 8.8 g/dL (6.4-8.2)
--- NOTE | 2023-01-04 22:20 | NUR ---
PT CHART REVEIWED FOR ADMISSION
[2023-01-04 23:11] VITALS: BP 147/71
--- NOTE | 2023-01-05 00:06 | NUR ---
PT ARRIVED TO ROOM AT 2207 AOX4 AND COOPERATIVE OF CARE. PT WAS ABLE TO STAND AND WALK OVER TO BED. PT STATES HE IS HAVING VERY MILD CHEST PAIN WHICH IS OFF AND ON, MUCH IMPROVED COMPARED TO WHEN HE ARRIVED PER PT.PT OREINTED TO ROOM AND CALL LIGHT WITHIN REACH. NO DISTRESS NOTED AT THIS TIME WILL CONTINUE TO MONITOR.
[2023-01-05 03:38] VITALS: BP 121/51
--- NOTE | 2023-01-05 05:05 | NUR ---
PT HAS HAD NO EVENTS THIS SHIFT. PT RESTING COMFORTABLY IN BED. NO DISTRESS NOTED. PT STATES NO INCREASE IN CHEST PAIN OVER NIGHT. CALL LIGHT IS WITHIN REACH WILL CONTINUE TO MONITOR.
[2023-01-05 07:31] VITALS: BP 133/70
[2023-01-05 17:01] VITALS: BP 118/68
--- NOTE | 2023-01-05 17:06 | NUR ---
SHIFT SUMMARY PT AOX4, INDEPENDENT IN THE ROOM. PT PLEASANT AND COOPERATIVE. AT THE BS THIS SHIFT. FIRST PORTION OF THE STRESS TEST COMPLETED. SECOND PORTION SCHEDULED FOR TOMORROW. PT HAS HAD NO C/O CP OR PRESSURE THIS SHIFT, NO SOB. PT WAS NPO FOR THE START OF THE SHIFT, TO GO NPO AGAIN TONIGHT AT MIDNIGHT. PT CALLS WELL AND MAKES HIS NEEDS KNOWN. CALL LIGHT WTIHIN REACH, BED IN THE LOWEST POSITION. WILL REPORT TO ONCOMING NURSE.
[2023-01-05 19:21] VITALS: BP 130/72
[2023-01-06 04:45] VITALS: BP 118/62
[2023-01-06 05:41] LABS: BASOPHILS ABSOLUTE AUTO 0.03 K/mm3 (0.00-0.23); BASOPHILS PERCENT AUTO 0 % (0-2); EOSINOPHILS PERCENT AUTO 3 % (0-6); Hematocrit 33.5 % (37.0-53.0); Hemoglobin 11.3 g/dL (13.5-17.5); IMMATURE GRAN ABSOLUTE AUTO 0.02 K/mm3 (0.00-0.10); IMMATURE GRAN PERCENT AUTO 0 % (0-1); LYMPHOCYTES ABSOLUTE AUTO 1.68 K/mm3 (0.84-5.20); LYMPHOCYTES PERCENT AUTO 25 % (21-46); MONOCYTES ABSOLUTE AUTO 0.93 K/mm3 (0.16-1.47); MONOCYTES PERCENT AUTO 14 % (4-13); Mean Corpuscular HGB 30.1 pg (26.0-34.0); Mean Corpuscular HGB Conc 33.7 g/dL (31.5-36.5); Mean Corpuscular Volume 89 fL (80-100); Mean Platelet Volume 10.5 fL (9.1-12.4); NEUTROPHILS ABSOLUTE AUTO 3.93 K/mm3 (1.96-9.15); NEUTROPHILS PERCENT AUTO 58 % (41-73); Platelet Count 176 K/mm3 (150-400); RDW Coefficient Variation 14.3 % (11.7-14.2); RDW Standard Deviation 46.5 fL (35.1-46.3); Red Blood Cell Count 3.75 M/mm3 (4.30-5.90); White Blood Cell Count 6.79 K/mm3 (4.00-11.30)
[2023-01-06 06:16] LABS: Bun/Creatinine Ratio 15.2 (12.0-20.0); Calcium, Blood 8.8 mg/dL (8.5-10.1); Creatinine, Blood 2.11 mg/dL (0.60-1.20); Potassium, Blood 4.4 mmol/L (3.5-5.5)
[2023-01-06 08:03] VITALS: BP 112/61
--- NOTE | 2023-01-06 17:54 | NUR ---
SHIFT SUMMARY PT A&OX4 AND PLEASANT. INDPENDENT IN ROOM. PT C/O CP IN THE MORNING WHILE LYING IN BED. NO OTHER SYMPTOMS NOTED. TELE STATED PT'S RATE AND RHYTHM WAS SINUS HARSHA AT 57. DR NOTIFIED AND EKG AND TOPONIN LABS ORDERED. PT TAKEN FOR SECOND PART OF STRESS TEST IN AFTERNOON. FAMILY AT BEDSIDE T/O DAY. PT DID HAVE SEVERAL EPISDOES OF LIQUID STOOL IN THE MORNING BUT STATED HE HAS NOT HAD ANYMORE SINCE. BED IN LOWEST POSITION AND CALL LIGHT IN REACH.
[2023-01-06 19:24] VITALS: BP 121/61
[2023-01-06 20:49] VITALS: BP 121/65
[2023-01-07 04:53] VITALS: BP 100/37
[2023-01-07 05:53] LABS: BASOPHILS ABSOLUTE AUTO 0.02 K/mm3 (0.00-0.23); BASOPHILS PERCENT AUTO 0 % (0-2); EOSINOPHILS ABSOLUTE AUTO 0.15 K/mm3 (0.00-0.68); EOSINOPHILS PERCENT AUTO 2 % (0-6); Hemoglobin 10.4 g/dL (13.5-17.5); IMMATURE GRAN ABSOLUTE AUTO 0.02 K/mm3 (0.00-0.10); IMMATURE GRAN PERCENT AUTO 0 % (0-1); LYMPHOCYTES ABSOLUTE AUTO 1.46 K/mm3 (0.84-5.20); LYMPHOCYTES PERCENT AUTO 20 % (21-46); MONOCYTES ABSOLUTE AUTO 0.97 K/mm3 (0.16-1.47); MONOCYTES PERCENT AUTO 13 % (4-13); Mean Corpuscular HGB 30.1 pg (26.0-34.0); Mean Corpuscular HGB Conc 33.5 g/dL (31.5-36.5); Mean Corpuscular Volume 90 fL (80-100); Mean Platelet Volume 10.7 fL (9.1-12.4); NEUTROPHILS ABSOLUTE AUTO 4.69 K/mm3 (1.96-9.15); NEUTROPHILS PERCENT AUTO 64 % (41-73); Platelet Count 172 K/mm3 (150-400); RDW Standard Deviation 45.8 fL (35.1-46.3); Red Blood Cell Count 3.46 M/mm3 (4.30-5.90); White Blood Cell Count 7.31 K/mm3 (4.00-11.30)
[2023-01-07 06:48] LABS: Bun/Creatinine Ratio 16.3 (12.0-20.0); Calcium, Blood 8.5 mg/dL (8.5-10.1); Creatinine, Blood 2.52 mg/dL (0.60-1.20); Potassium, Blood 4.3 mmol/L (3.5-5.5)
--- NOTE | 2023-01-07 07:24 | NUR ---
END OF SHIFT SUMMARY PT A&O x4, VSS. PT KIND AND COOPERATIVE WITH CARE PROVIDED. PT DENIED CP/PRESSURE AND NO SOB. PT APPEARED TO SLEEP WELL THROUGHOUT THE NIGHT. PT CONTINENT, USES THE URINAL. PT 1P ASSIST WITH TRANSFERS, PT USES CANE AT BASELINE AT HOME. PT ABLE TO MAKE NEEDS KNOWN. CALL LIGHT WITHIN REACH, TM.
[2023-01-07 07:54] VITALS: BP 109/62
[2023-01-07 13:49] LABS: Bun/Creatinine Ratio 16.5 (12.0-20.0); Calcium, Blood 8.3 mg/dL (8.5-10.1); Creatinine, Blood 2.31 mg/dL (0.60-1.20); Potassium, Blood 4.5 mmol/L (3.5-5.5)
[2023-01-07 15:25] VITALS: BP 121/65
--- NOTE | 2023-01-07 17:24 | NUR ---
PT DISCHARGED 1716 WITH INSTRUCTIONS. WHEELCHAIR OUT TO PRIVATE CAR. NO NEW PRESCRIPTIONS. TO FOLLOW UP WITH PCP
== END 2023-01-07 17:25 | disposition home or self-care (01) ==
LOC: ER 16:13 → ERHOLD 16:14 → MEDS 16:14 → ENPENDDIS 01-07 16:36 → MEDS 01-07 17:25
PROVIDERS: Hospitalist; Physician Assistant; Student in an Organized Health Care Education/Training Program; ADMIT Internal Medicine
DX: I25.110 Atherosclerotic heart disease of native coronary artery with unstable angina pectoris (principal); R19.7 Diarrhea, unspecified; I12.9 Hypertensive chronic kidney disease with stage 1 through stage 4 chronic kidney disease, or unspecified chronic kidney disease; N18.30 Chronic kidney disease, stage 3 unspecified; E78.5 Hyperlipidemia, unspecified; K21.9 Gastro-esophageal reflux disease without esophagitis; K86.89 Other specified diseases of pancreas; N40.0 Benign prostatic hyperplasia without lower urinary tract symptoms; Z95.5 Presence of coronary angioplasty implant and graft; Z88.5 Allergy status to narcotic agent; Z88.2 Allergy status to sulfonamides; Z88.0 Allergy status to penicillin; Z79.82 Long term (current) use of aspirin; Z79.899 Other long term (current) drug therapy
CPT/HCPCS: 36415; 71045; 78452; 80048; 80053; 83880; 84484; 85025; 93005; 93010; 93017; 93306; 96372; 99285-25; A9270; A9500; G0378; J1650; J2785; J7120